=== PATIENT | female | born 1940 | race Caucasian/White ===

== ENCOUNTER 2018-09-17 18:50 | Emergency (ER) | payer MEDICARE ==
[~2018-09-17] VITALS: Ht 172.7 cm; Wt 59.3 kg
[2018-09-17] MEDS ORDERED: LIDOCAINE-MPF 1%, 5ML ONE (19:40)
--- NOTE | 2018-09-17 19:40 | NUR ---
THIS IS A 78 YO FEMALE WHO PRESENTS TO THE ER AFTER A MGLF IN WHICH PT HIT HEAD AND BACK ON A BENCH AFTER TRIPPING BACKWARDS INTO HER DAUGHTERS HOUSE. PT CURRENTLY AO X 4. PERRLA. PT SUSTAINED A 3 CM LAC TO BACK OF LEFT FA. PT ON BP AND O2 MONITORS. CALL LIGHT WITHIN REACH. WILL CONT TO MONITOR PT.
[2018-09-17] MEDS ORDERED: LIDOCAINE 1%-EPI 1:100K, 20ML ONE (19:43)
[2018-09-17] MEDS ORDERED: DIPH,PERTUSS(ACELL),TET VAC/PF 0.5 ML IM-VACC ONE (20:00)
[2018-09-17] MEDS ORDERED: LIDOCAINE 1%-EPI 1:100K, 20ML SQ ONE (20:00)
--- NOTE | 2018-09-17 20:40 | NUR ---
PT CURRENTLY RESTING ON GURNEY. NAD NOTED. SKIN PWD. PT AO X 4. PERRLA. PT DENIES PAIN. PT ON BP MONITORING. CALL LIGHT WITHIN REACH. WILL CONT TO MONITOR PT.
[2018-09-17 21:34] VITALS: BP 146/71
== END 2018-09-17 21:38 | disposition home or self-care (01) ==
LOC: ED 20:41
DX: S51.812A Laceration without foreign body of left forearm, initial encounter (principal); S09.90XA Unspecified injury of head, initial encounter; M54.2 Cervicalgia; W01.10XA Fall on same level from slipping, tripping and stumbling with subsequent striking against unspecified object, initial encounter; Y93.89 Activity, other specified; Y92.89 Other specified places as the place of occurrence of the external cause; Y99.8 Other external cause status
CPT/HCPCS: 12032; 70450; 72110; 72125; 73090; 90471; 90715; 99284; J3490